=== PATIENT | female | born 1970 | race Hispanic/Latino ===

== ENCOUNTER → 2021-09-04 08:08 | Outpatient (CLI) | payer OTHER, SELFPAY | PROVIDERS: Referring Provider Orthopaedic Surgery; Visit Provider Orthopaedic Surgery | DX: S46.012S Strain of muscle(s) and tendon(s) of the rotator cuff of left shoulder, sequela (principal); Z53.20 Procedure and treatment not carried out because of patient's decision for unspecified reasons ==

== ENCOUNTER 2022-04-10 04:27 | Emergency (ER) | payer OTHER, MEDICAID, SELFPAY ==
[2022-04-10] VITALS (10 sets, daily range): BP systolic 128–185; BP diastolic 78–93; PULSE 72–100; RESP 20–21; TEMP 36.7–36.9; O2SAT 96–98; BMI 37.4
--- NOTE | 2022-04-10 04:44 | ED.GENADULT ---
HPI - General Adult <Alberto Chadwick DO - Last Filed: 04/10/22 18:08> General Chief complaint: Upper Respiratory Symptoms Stated complaint: bodyaches, congested Time Seen by Provider: 04/10/22 04:34 Source: patient Mode of arrival: Ambulatory Limitations: language barrier History of Present Illness HPI narrative: 52-year-old female. Is Nicaraguan-speaking only. Language/translation line was used for HPI and review of systems. She is here for evaluation of congestion, left ear pain, body aches, headache, cough and generally not feeling well for the past several hours/day. No fevers. Related Data Previous Rx's Medication Instructions Recorded azithromycin 250 mg tablet See Rx Instructions PO .COMPLEX #6 04/10/22 tabs Allergies Allergy/AdvReac Type Severity Reaction Status Date / Time No Known Drug Allergies Allergy Verified 04/10/22 04:46 Review of Systems <Alberto Chadwick DO - Last Filed: 04/10/22 18:08> Constitutional Constitutional: Reports system reviewed and no additional complaints, except as documented ENT Ears, Nose, Mouth, and Throat: Reports system reviewed and no additional complaints, except as documented Respiratory Respiratory: Reports system reviewed and no additional complaints, except as documented Integumentary/Breasts Skin/Breast: Reports system reviewed and no additional complaints, except as documented Patient History <DO Ale Onofre Last Filed: 04/10/22 18:08> Social History Smoking Status: Never smoker Exam <DO Ale Onofre Last Filed: 04/10/22 18:08> Initial Vital Signs Initial Vital Signs: Vital Signs Temperature 98.5 F 04/10/22 04:46 Pulse Rate 100 H 04/10/22 04:46 Respiratory Rate 21 04/10/22 04:46 Blood Pressure 185/93 H 04/10/22 04:46 Pulse Oximetry 98 04/10/22 04:46 Oxygen Delivery Method 04/10/22 04:46 Const General: cooperative and comfortable HENWY Ears: EAC's normal and TM abnormal bulging on the left; not on the right, dull on the left and with fluid behind the TM on the left; not on the right Resp Effort & Inspection: normal respiratory effort Auscultation: clear to auscultation bilaterally Cardio Rate: regular rate GI Inspection: normal to inspection Skin General: no rashes or lesions noted Neuro General: patient alert, patient awake and moves all extremities Extrem General: normal to inspection and capillary refill normal <Amna Short DO - Last Filed: 04/10/22 09:27> Initial Vital Signs Initial Vital Signs: Vital Signs Temperature 98.5 F 04/10/22 04:46 Pulse Rate 100 H 04/10/22 04:46 Respiratory Rate 21 04/10/22 04:46 Blood Pressure 185/93 H 04/10/22 04:46 Pulse Oximetry 98 04/10/22 04:46 Oxygen Delivery Method 04/10/22 04:46 Course <Alberto Chadwick DO - Last Filed: 04/10/22 18:08> Orders Ordered: Discontinued Medications Acetaminophen (Acetaminophen 325 Mg Tablet) 650 mg PO NOW ONE Stop: 04/10/22 04:46 Last Admin: 04/10/22 04:48 Dose: 650 mg Documented By: CANDI Sodium Chloride (Normal Saline 0.9%) 1,000 mls @ 1,000 mls/hr IV BOLUS ONE Stop: 04/10/22 07:02 Last Infusion: 04/10/22 08:07 Dose: 0 mls/hr Documented By: Admin: 04/10/22 06:15 Dose: 1,000 mls/hr Documented By: CANDI Ketorolac Tromethamine (Ketorolac 30 Mg/Ml Vial) 30 mg IV NOW ONE Stop: 04/10/22 06:04 Last Admin: 04/10/22 06:16 Dose: 30 mg Documented By: CANDI Vital Signs Vital signs: Vital Signs - 8 hr 04/10/22 04:46 04/10/22 05:56 04/10/22 06:30 Temperature 98.5 F 98.1 F Pulse Rate 100 H 82 75 Respiratory Rate 21 20 20 Blood Pressure 185/93 H 139/88 137/80 Pulse Oximetry 98 97 97 Oxygen Delivery Method Room Air Room Air Room Air 04/10/22 07:00 04/10/22 07:30 04/10/22 08:00 Temperature Pulse Rate 76 78 72 Respiratory Rate Blood Pressure Pulse Oximetry 96 96 98 Oxygen Delivery Method 04/10/22 08:16 04/10/22 08:16 04/10/22 08:30 Temperature Pulse Rate 78 Respiratory Rate Blood Pressure 131/82 134/78 Pulse Oximetry 98 Oxygen Delivery Method 04/10/22 08:30 04/10/22 09:00 04/10/22 09:00 Temperature Pulse Rate 77 77 Respiratory Rate Blood Pressure 128/85 Pulse Oximetry 97 97 Oxygen Delivery Method 04/10/22 09:21 Temperature Pulse Rate 72 Respiratory Rate Blood Pressure 128/85 Pulse Oximetry 98 Oxygen Delivery Method Room Air <Amna Short, - Last Filed: 04/10/22 09:27> Orders Ordered: Discontinued Medications Acetaminophen (Acetaminophen 325 Mg Tablet) 650 mg PO NOW ONE Stop: 04/10/22 04:46 Last Admin: 04/10/22 04:48 Dose: 650 mg Documented By: OW Sodium Chloride (Normal Saline 0.9%) 1,000 mls @ 1,000 mls/hr IV BOLUS ONE Stop: 04/10/22 07:02 Last Infusion: 04/10/22 08:07 Dose: 0 mls/hr Documented By: Admin: 04/10/22 06:15 Dose: 1,000 mls/hr Documented By: OW Ketorolac Tromethamine (Ketorolac 30 Mg/Ml Vial) 30 mg IV NOW ONE Stop: 04/10/22 06:04 Last Admin: 04/10/22 06:16 Dose: 30 mg Documented By: CANDI Vital Signs Vital signs: Vital Signs - 8 hr 04/10/22 04:46 04/10/22 05:56 04/10/22 06:30 Temperature 98.5 F 98.1 F Pulse Rate 100 H 82 75 Respiratory Rate 21 20 20 Blood Pressure 185/93 H 139/88 137/80 Pulse Oximetry 98 97 97 Oxygen Delivery Method Room Air Room Air Room Air 04/10/22 07:00 04/10/22 07:30 04/10/22 08:00 Temperature Pulse Rate 76 78 72 Respiratory Rate Blood Pressure Pulse Oximetry 96 96 98 Oxygen Delivery Method 04/10/22 08:16 04/10/22 08:16 04/10/22 08:30 Temperature Pulse Rate 78 Respiratory Rate Blood Pressure 131/82 134/78 Pulse Oximetry 98 Oxygen Delivery Method 04/10/22 08:30 04/10/22 09:00 04/10/22 09:00 Temperature Pulse Rate 77 77 Respiratory Rate Blood Pressure 128/85 Pulse Oximetry 97 97 Oxygen Delivery Method 04/10/22 09:21 Temperature Pulse Rate 72 Respiratory Rate Blood Pressure 128/85 Pulse Oximetry 98 Oxygen Delivery Method Room Air Medical Decision Making <Alberto Chadwick, DO - Last Filed: 04/10/22 18:08> Differential Diagnosis Differential Diagnosis: COVID-19, influenza, sepsis urinary tract infection, pneumonia and others Condition is:: Failing to change as expected Lab Data Result diagrams: 04/10/22 06:10 04/10/22 06:10 Labs: Lab Results 04/10/22 04/10/22 04/10/22 Range/Units 04:40 06:10 06:10 WBC 12.0 H (4.5-11.0) X10^3/uL RBC 4.10 (4.0-5.2) X10^6/uL Hgb 11.9 L (12.0-16.0) g/dL Hct 35.7 L (36-46) % MCV 87.1 (80-100) fL MCH 28.9 (26-34) PG MCHC 33.2 (30-36) % RDW 14.5 (11.6-14.8) % Plt Count 223 (150-400) X10^3/uL Neut % (Auto) 76.3 H (50-75) % Lymph % (Auto) 15.2 L (25-40) % [place] % (Auto) 7.4 (3-14) % Eos % (Auto) 0.7 L (2-4) % Baso % (Auto) 0.4 (0-2) % Neut # (Auto) 9100 H (8640-5940) /uL Lymph # (Auto) 1800 (9687-4648) /uL [place] # (Auto) 900 (0-900) /uL Eos # (Auto) 100 (0-450) /uL Baso # (Auto) 100 (0-100) /uL Sodium 138 (137-145) mmol/L Potassium 4.0 (3.4-5.1) mmol/L Chloride 101 (98-107) mmol/L Carbon Dioxide 27 (22-32) mmol/L BUN 13 (7-17) mg/dL Creatinine 0.55 (0.52-1.04) mg/dL Estimated GFR > 60 (>60) mL/min BUN/Creatinine Ratio 23.6 H (6-22) Glucose 139 H (70-100) mg/dL Calcium 8.4 (8.4-10.2) mg/dL Total Bilirubin 0.6 (0.2-1.3) mg/dL AST 17 (14-36) IU/L ALT 21 (<35) IU/L Alkaline Phosphatase 73 (38-126) U/L Total Protein 7.7 (6.3-8.2) g/dL Albumin 4.0 (3.5-5.0) g/dL Globulin 3.7 (1.7-4.1) g/dL Albumin/Globulin Ratio 1.1 (1.0-2.8) Lipase 267 (23-300) U/L SARS-CoV-2 (PCR) Negative (Negative) Influenza A (RT-PCR) Flu a negative (NEGATIVE) Influenza B (RT-PCR) Flu b negative (NEGATIVE) RSV (PCR) Negative (Negative) Urine Dip Bedside Urine Glucose Negative Bedside Urine Bilirubin - Negative Bedside Urine Ketone - Negative Urine Specific [place] 1.015 Bedside Urine Occult Blood - Negative Bedside Urine pH 6.0 Bedside Urine Protein - Negative Bedside Urine Urobilinogen - Negative Bedside Urine Nitrite - Negative Bedside Urine Leukocytes - Negative Esterase Point of care testing: Urine Dip Bedside Urine Glucose Negative Bedside Urine Bilirubin - Negative Bedside Urine Ketone - Negative Urine Specific [place] 1.015 Bedside Urine Occult Blood - Negative Bedside Urine pH 6.0 Bedside Urine Protein - Negative Bedside Urine Urobilinogen - Negative Bedside Urine Nitrite - Negative Bedside Urine Leukocytes - Negative Esterase Imaging Data Chest x-ray: Attestation: I personally reviewed and interpreted this imaging study as follows: My Impression: No acute changes Radiologist's Impression: No acute findings MDM Narrative Medical decision making narrative: Upon arrival my initial thought was that the patient either had COVID or influenza given her presentation. She has a bulging left tympanic membrane that is not erythematous and other findings consistent with an upper respiratory infection however her testing for COVID influenza is negative. Her chest x-ray shows no signs of pneumonia. Turns out that the patient does speak very good Cymro and I was able to have a conversation with her without the language line. She denied any urinary symptoms. Yesterday she did have hemorrhoid banding. She would quite a bit of discomfort afterwards but not much today. She is having some left-sided abdominal tenderness. This has been worsening over the past couple days. She is also had some nausea but no vomiting. She does have a rash under the her abdominal pannus but no other signs of cellulitis. Given her lack of improvement with Tylenol and negative influenza and COVID we will draw labs and obtain a CT scan of the abdomen for further evaluation. Patient expressed understanding and agreement with this. Care turned over to Dr. Short to follow-up on CT scan and disposition. <Amna Leigh Ann Short, DO - Last Filed: 04/10/22 09:27> Lab Data Labs: Lab Results 04/10/22 04/10/22 04/10/22 Range/Units 04:40 06:10 06:10 WBC 12.0 H (4.5-11.0) X10^3/uL RBC 4.10 (4.0-5.2) X10^6/uL Hgb 11.9 L (12.0-16.0) g/dL Hct 35.7 L (36-46) % MCV 87.1 (80-100) fL MCH 28.9 (26-34) PG MCHC 33.2 (30-36) % RDW 14.5 (11.6-14.8) % Plt Count 223 (150-400) X10^3/uL Neut % (Auto) 76.3 H (50-75) % Lymph % (Auto) 15.2 L (25-40) % [place] % (Auto) 7.4 (3-14) % Eos % (Auto) 0.7 L (2-4) % Baso % (Auto) 0.4 (0-2) % Neut # (Auto) 9100 H (1530-7482) /uL Lymph # (Auto) 1800 (2569-8377) /uL [place] # (Auto) 900 (0-900) /uL Eos # (Auto) 100 (0-450) /uL Baso # (Auto) 100 (0-100) /uL Sodium 138 (137-145) mmol/L Potassium 4.0 (3.4-5.1) mmol/L Chloride 101 (98-107) mmol/L Carbon Dioxide 27 (22-32) mmol/L BUN 13 (7-17) mg/dL Creatinine 0.55 (0.52-1.04) mg/dL Estimated GFR > 60 (>60) mL/min BUN/Creatinine Ratio 23.6 H (6-22) Glucose 139 H (70-100) mg/dL Calcium 8.4 (8.4-10.2) mg/dL Total Bilirubin 0.6 (0.2-1.3) mg/dL AST 17 (14-36) IU/L ALT 21 (<35) IU/L Alkaline Phosphatase 73 (38-126) U/L Total Protein 7.7 (6.3-8.2) g/dL Albumin 4.0 (3.5-5.0) g/dL Globulin 3.7 (1.7-4.1) g/dL Albumin/Globulin Ratio 1.1 (1.0-2.8) Lipase 267 (23-300) U/L SARS-CoV-2 (PCR) Negative (Negative) Influenza A (RT-PCR) Flu a negative (NEGATIVE) Influenza B (RT-PCR) Flu b negative (NEGATIVE) RSV (PCR) Negative (Negative) Urine Dip Bedside Urine Glucose Negative Bedside Urine Bilirubin - Negative Bedside Urine Ketone - Negative Urine Specific [place] 1.015 Bedside Urine Occult Blood - Negative Bedside Urine pH 6.0 Bedside Urine Protein - Negative Bedside Urine Urobilinogen - Negative Bedside Urine Nitrite - Negative Bedside Urine Leukocytes - Negative Esterase Point of care testing: Urine Dip Bedside Urine Glucose Negative Bedside Urine Bilirubin - Negative Bedside Urine Ketone - Negative Urine Specific [place] 1.015 Bedside Urine Occult Blood - Negative Bedside Urine pH 6.0 Bedside Urine Protein - Negative Bedside Urine Urobilinogen - Negative Bedside Urine Nitrite - Negative Bedside Urine Leukocytes - Negative Esterase Imaging Data CT scan - abdomen/pelvis: Radiologist's Impression: [place] [address] CT Scan Report Signed Patient: Nazia Nichols MR#: [id number] : 1970 Acct:[id number] Age/Sex: 52 / F Date of Service: 04/10/22 Loc: ED Accession Number: [id number] ?? Procedure: CT abdomen pelvis w con Ordering Provider: Alberto Chadwick D.O. PROCEDURE:? CT ABDOMEN PELVIS W CON ? INDICATIONS:? Left-sided abdominal pain ? TECHNIQUE:? After the administration of intravenous contrast, axial sections acquired from the lung bases to the pubic symphysis.? Coronal and sagittal reformats were performed.? For radiation dose reduction, the following was used:? automated exposure control, adjustment of mA and/or kV according to patient size.? ? COMPARISON:? None. ? FINDINGS: ? Image quality:? Excellent.? ? Lung bases:? Bibasilar atelectasis.? Multiple scattered noncalcified pulmonary nodules in the right middle lobe measuring approximately 4-5 mm in size.? There is also a 9 mm ground-glass nodule noted in the subpleural region of the right middle lobe (image 5/series 3). ? Heart:? No significant findings. ? ABDOMEN: Liver:? There is diffuse hypoattenuation of the liver parenchyma relative to the spleen compatible with hepatic steatosis.? ? Gallbladder:? Unremarkable.? ? Biliary ducts:? Unremarkable.? ? Pancreas:? Unremarkable.? ? Spleen:? Unremarkable.? ? Adrenal Glands:? Unremarkable.? ? Kidneys and Ureters:? Unremarkable.? ? ? Stomach and Bowel:? Stomach, small bowel loops, and colon are unremarkable.? A few scant colonic diverticula without evidence for acute diverticulitis.? Normal appendix. Peritoneum:? No abnormal intraperitoneal fluid.? No free air.? ? Ventral Wall: ? No hernia.? Abdominal Nodes:? Multiple scattered mesenteric lymph nodes are more notable for number rather than size and likely reactive in etiology.? Most prominent lymph node noted in the left periaortic region near the level of the renal vessels. Vessels:? Aorta and inferior vena cava are normal in size.? ? PELVIS: Pelvic Organs:? Unremarkable.? ? Bladder:? Unremarkable.? ? Pelvic Nodes: No enlarged lymph nodes.? Miscellaneous: No inguinal hernias are seen. ? ? ? Bones:? No acute vertebral body compression fractures. Multilevel spondylitic changes throughout the imaged spine.? No suspicious osseous lesions.? ? Moderate degenerative endplate changes noted at L4-5.? Focal oval sclerotic lesion at L1. ? IMPRESSION:? ? 1. CT abdomen and pelvis without acute abnormalities. ? 2. Multiple scattered mesenteric lymph nodes more notable for number rather than size, likely reactive in etiology. ? ? 3. Scanned colonic diverticulosis without acute diverticulitis. ? 4. Multiple right middle lobe sub cm nodules with a 9 mm ground-glass nodule.? Recommend follow-up chest CT further evaluation. ? 5. Multilevel lumbar spondylosis most severe at L4-5. ? No significant discrepancy with the shrink pit operator radiology preliminary report.? ? ? Dictated by: Eddie Ospina M.D. on 04/10/2022 at 7:20 ? ? Approved by: Eddie Ospina M.D. on 04/10/2022 at 7:33?? [facility] Narrative Medical decision making narrative: Upon arrival my initial thought was that the patient either had COVID or influenza given her presentation. She has a bulging left tympanic membrane that is not erythematous and other findings consistent with an upper respiratory infection however her testing for COVID influenza is negative. Her chest x-ray shows no signs of pneumonia. Turns out that the patient does speak very good Cymro and I was able to have a conversation with her without the language line. She denied any urinary symptoms. Yesterday she did have hemorrhoid banding. She would quite a bit of discomfort afterwards but not much today. She is having some left-sided abdominal tenderness. This has been worsening over the past couple days. She is also had some nausea but no vomiting. She does have a rash under the her abdominal pannus but no other signs of cellulitis. Given her lack of improvement with Tylenol and negative influenza and COVID we will draw labs and obtain a CT scan of the abdomen for further evaluation. Patient expressed understanding and agreement with this. Care turned over to Dr. Short to follow-up on CT scan and disposition. 04/10/22 [place]: Patient signed out by Dr. Chadwick to myself. Patient seen independently evaluated by myself. Patient is clearly has upper respiratory congestion on examination no overall findings are consistent with viral URI. Patient is not actually Nicaraguan-speaking only. Patient's imaging overall reassuring likely has viral illness causing her symptoms CT abdomen pelvis was obtained as patient had recent hemorrhoid banding and had some complaint of left lower quadrant discomfort. Patient is noted to have multiple right middle lobe subcentimeter nodules with a 9 mm ground-glass nodule recommended have follow-up CT chest for repeat evaluation in the future, scattered mesenteric lymph nodes. Patient's labs overall show a mild leukocytosis, hemoglobin of 11, leftward shift, cmp overall normal, albumin not done secondary to no agent available. COVID/influenza/RSV swab is negative. Suspect more viral cause patient does have multiple lymph nodes in the right lower lung discussed patient to start antibiotic versus watchful waiting and need for follow-up CT. Patient was noted to have bulging left tympanic membrane without erythema or signs of infection require antibiotics but likely cause of her left ear pain, appreciated more erythema on exam although not complete. Discussed with patient will give prescription for azithromycin but only to start if after several days of decongestants is not improving particularly with her ground-glass nodules this is felt appropriate. Patient agreed expressed her understanding. Gave her option for primary care follow-up although she states she is moving to [place]. We did review all of her findings today no all questions answered. Discharge Plan Departure Patient Disposition: Home Clinical Impression: Upper respiratory infection, Lung nodule, multiple, Otitis media Activity Restrictions/Additional Instructions: Your CT today showed several small nodules in the right lung and is recommended that you have a repeat CT of the chest in the future. Please follow-up with your physician to schedule this. You can use an [id number] decongestant help your left ear drain. You may find it helpful to use Flonase once daily in each nostril. Prescription sent for antibiotic if your ear is not improving after decongestants. Prescription sent to [facility] in [place] Please return if your symptoms are significantly worsening new chest pain, shortness of breath, persistent vomiting, rapidly worsening abdominal back flank pain, persistent fevers, worsening black or bloody stools or other new or concerning changes. Prescriptions: New azithromycin 250 mg tablet See Rx Instructions .ROUTE .COMPLEX Qty: 6 0RF Rx Instructions: For 250 mg dose pack: take 500 mg today (day 1), then 250 mg for 4 days (days 2-5) Referrals: Pamela Clark DO [Physician] - Stand Alone Forms: Patient Portal/API
[2022-04-10] MEDS: ACETAMINOPHEN 325 MG TABLET 650 MG PO (04:48)
[2022-04-10 05:26] LABS: Influenza A - CEPHEID Flu A NEGATIVE (NEGATIVE); Influenza B - CEPHEID Flu B NEGATIVE (NEGATIVE); Respiratory Syncytial Virus Negative (Negative)
[2022-04-10 05:28] LABS: COVID-19 CEPHEID 4-PLEX PCR Negative (Negative)
--- NOTE | 2022-04-10 05:31 | DI.RAD.S_ITS ---
PROCEDURE: XR CHEST 1V INDICATIONS: eval for PNA TECHNIQUE: One view of the chest was acquired. COMPARISON: None. FINDINGS: Surgical changes and devices: None. Lungs and pleura: Lungs are clear. No pleural effusions or pneumothorax. Mediastinum: Mediastinal contours appear normal. Heart size is normal. Bones and chest wall: No suspicious bony lesions. Overlying soft tissues appear unremarkable. IMPRESSION: No acute cardiopulmonary abnormalities or focal airspace disease. No significant discrepancy with the rn night radiology preliminary report. Dictated by: Eddie Ospina M.D. on 04/10/2022 at 7:04 Approved by: Eddie Ospina M.D. on 04/10/2022 at 7:04
--- NOTE | 2022-04-10 06:04 | DI.CT.S_ITS ---
PROCEDURE: CT ABDOMEN PELVIS W CON INDICATIONS: Left-sided abdominal pain TECHNIQUE: After the administration of intravenous contrast, axial sections acquired from the lung bases to the pubic symphysis. Coronal and sagittal reformats were performed. For radiation dose reduction, the following was used: automated exposure control, adjustment of mA and/or kV according to patient size. COMPARISON: None. FINDINGS: Image quality: Excellent. Lung bases: Bibasilar atelectasis. Multiple scattered noncalcified pulmonary nodules in the right middle lobe measuring approximately 4-5 mm in size. There is also a 9 mm ground-glass nodule noted in the subpleural region of the right middle lobe (image 5/series 3). Heart: No significant findings. ABDOMEN: Liver: There is diffuse hypoattenuation of the liver parenchyma relative to the spleen compatible with hepatic steatosis. Gallbladder: Unremarkable. Biliary ducts: Unremarkable. Pancreas: Unremarkable. Spleen: Unremarkable. Adrenal Glands: Unremarkable. Kidneys and Ureters: Unremarkable. Stomach and Bowel: Stomach, small bowel loops, and colon are unremarkable. A few scant colonic diverticula without evidence for acute diverticulitis. Normal appendix. Peritoneum: No abnormal intraperitoneal fluid. No free air. Ventral Wall: No hernia. Abdominal Nodes: Multiple scattered mesenteric lymph nodes are more notable for number rather than size and likely reactive in etiology. Most prominent lymph node noted in the left periaortic region near the level of the renal vessels. Vessels: Aorta and inferior vena cava are normal in size. PELVIS: Pelvic Organs: Unremarkable. Bladder: Unremarkable. Pelvic Nodes: No enlarged lymph nodes. Miscellaneous: No inguinal hernias are seen. Bones: No acute vertebral body compression fractures. Multilevel spondylitic changes throughout the imaged spine. No suspicious osseous lesions. Moderate degenerative endplate changes noted at L4-5. Focal oval sclerotic lesion at L1. IMPRESSION: 1. CT abdomen and pelvis without acute abnormalities. 2. Multiple scattered mesenteric lymph nodes more notable for number rather than size, likely reactive in etiology. 3. Scanned colonic diverticulosis without acute diverticulitis. 4. Multiple right middle lobe sub cm nodules with a 9 mm ground-glass nodule. Recommend follow-up chest CT further evaluation. 5. Multilevel lumbar spondylosis most severe at L4-5. No significant discrepancy with the casino shift manager radiology preliminary report. Dictated by: Eddie Ospina M.D. on 04/10/2022 at 7:20 Approved by: Eddie Ospina M.D. on 04/10/2022 at 7:33
[2022-04-10] MEDS: SODIUM CHLORIDE 0.9% 1,000 ML 1000 ML IV (06:15)
[2022-04-10 06:16] LABS: Add Manual Diff / Slide Review NO; Basophils Absolute Auto 100 /uL (0-100); Basophils Percent Auto 0.4 % (0-2); Eosinophils Absolute Auto 100 /uL (0-450); Eosinophils Percent Auto 0.7 % (2-4); Hematocrit 35.7 % (36-46); Hemoglobin 11.9 g/dL (12.0-16.0); Lymphocytes Absolute Auto 1800 /uL (1100-4500); Lymphocytes Percent Auto 15.2 % (25-40); Mean Corpuscular HGB Conc 33.2 % (30-36); Mean Corpuscular Hemoglobin 28.9 PG (26-34); Mean Corpuscular Volume 87.1 fL (80-100); Monocytes Absolute Auto 900 /uL (0-900); Monocytes Percent Auto 7.4 % (3-14); Neutrophils Absolute Auto 9100 /uL (1500-7000); Neutrophils Percent Auto 76.3 % (50-75); Platelet Count 223 X10^3/uL (150-400); Red Cell Distribution Width 14.5 % (11.6-14.8)
[2022-04-10] MEDS: KETOROLAC 30 MG/ML VIAL IV (06:16)
[2022-04-10 06:27] LABS: Alanine Aminotransferase 21 IU/L (<35); Alkaline Phosphatase 73 U/L (38-126); Aspartate Aminotransferase 17 IU/L (14-36); BUN Creatinine Ratio 23.6 (6-22); Bilirubin Total 0.6 mg/dL (0.2-1.3); Blood Urea Nitrogen 13 mg/dL (7-17); Calcium 8.4 mg/dL (8.4-10.2); Carbon Dioxide 27 mmol/L (22-32); Chloride 101 mmol/L (98-107); Estimated Glomerular Filt Rate > 60 mL/min (>60); Glucose 139 mg/dL (70-100); HEMOLYSIS < 15 (0-50); Lipase 267 U/L (23-300); Sodium 138 mmol/L (137-145); Total Protein 7.7 g/dL (6.3-8.2)
[2022-04-10 16:13] LABS: Albumin Globulin Ratio 1.1 (1.0-2.8); Globulin 3.7 g/dL (1.7-4.1)
== END 2022-04-10 09:22 | disposition home or self-care (01) ==
PROVIDERS: Emergency Medicine; Emergency Provider Emergency Medicine
DX: J06.9 Acute upper respiratory infection, unspecified (principal); R91.8 Other nonspecific abnormal finding of lung field; H66.92 Otitis media, unspecified, left ear; Z20.822 Contact with and (suspected) exposure to COVID-19
CPT/HCPCS: 0241U; 36415; 71045; 74177; 80053; 81003; 83690; 85025; 96361; 96374; 99284; J1885; Q9967